=== PATIENT | male | born 1995 | race Caucasian/White ===

== ENCOUNTER 2016-10-02 02:13 | Emergency (ER) | payer MEDICAID ==
[~2016-10-02] VITALS: Ht 167.6 cm; Wt 71.6 kg
[2016-10-02 03:08] VITALS: BP 128/79
== END 2016-10-02 05:12 | disposition home or self-care (01) ==
LOC: ED 04:45
DX: R07.89 Other chest pain (principal); F17.200 Nicotine dependence, unspecified, uncomplicated
CPT/HCPCS: 71020; 93005; 99284